=== PATIENT | male | born 1955 | race American Indian/Alaskan Native ===

== ENCOUNTER 2022-02-24 05:44 | Emergency (ER) | payer MEDICARE, OTHER ==
[2022-02-24] MEDS ORDERED: Bacitracin Oint 1 GM U/D Packet TOP ONE (06:12)
[2022-02-24] MEDS ORDERED: Lidocaine 1% with EPINEPHrine 1:100,000 50 ML MDV SUBCUT STA (06:12)
[2022-02-24] MEDS ORDERED: Ketorolac 30 MG/ML SDV IM ONE (06:31)
== END 2022-02-24 07:23 | disposition home or self-care (01) ==
LOC: JP.ED 05:44
DX: S01.01XA Laceration without foreign body of scalp, initial encounter (principal); I10 Essential (primary) hypertension; E66.9 Obesity, unspecified; Z68.35 Body mass index [BMI] 35.0-35.9, adult; Z79.899 Other long term (current) drug therapy; W01.198A Fall on same level from slipping, tripping and stumbling with subsequent striking against other object, initial encounter
CPT/HCPCS: 12002; 96372; 99282; J1885